=== PATIENT | female | born 1965 | race Caucasian/White ===

== ENCOUNTER → 2016-08-14 | Day surgery (SDC) | payer OTHER ==
[~2016-08-14] MED LIST: ACETAMINOPHEN 1000 MG/100 ML VIAL IV ONE; ACETAMINOPHEN/HYDROcodone 325 MG/5 MG TAB ONE; BACITRACIN IM FOR SOLN 50,000 UNIT VIAL ONE; BUPIVACAINE/EPINEPHRINE 0.25% 50 ML VIAL ONE; GENTAMICIN SULFATE 80 MG/2 ML VIAL ONE; LACTATED RINGER'S 1000 ML INJ 1,000 ML ONE; LIDOCAINE 1%/EPINEPHrine 1:100,000 SOLN 20 ML VIAL ONE; MEPERIDINE HCL 50 MG/ML VIAL ONE; MIDAZOLAM HCL 2 MG/2 ML VIAL ONE; MORPHINE SULFATE 4 MG/ML INJ ONE; ONDANSETRON HCL 4 MG/2 ML VIAL IV PUSH ONE; PROPOFOL 200 MG/20 ML AMP IV ONE; SODIUM CHLORIDE 0.9% 20 ML VIAL ONE; Z.0.NO CURRENT MEDS; ceFAZolin INJ 1,000 MG VIAL ONE
--- NOTE | 2016-08-14 09:38 | TN ---
cc: DAX HIGUERA M.D. DATE OF SURGERY 08/14/2016 PREOPERATIVE DIAGNOSIS Deflation of right breast implant. POSTOPERATIVE DIAGNOSIS Deflation of right breast implant. PROCEDURE Bilateral removal of saline implants and placement with cohesive gel, Natrelle Inspira SRX volume 400 cc. Serial number of the right breast implant device [id number] and on the left [id number]. ESTIMATED BLOOD LOSS Minimal. COMPLICATIONS None. PROCEDURE IN DETAIL She was properly consented, marked anesthetized, the skin sterilized with Betadine solution, sterile draping applied and a breast block was applied utilizing 30 cc of 1% lidocaine with epinephrine. Isolation of the nipple-areolar complex was done from the beginning with a Tegaderm. I proceeded to perform through an infra-areolar vertical incision, down to the capsule of the breast implant. This was properly removed without any difficulties. Obviously, the right breast implant was completely deflated whereas the left breast implant was intact. Photograph documentation was obtained and then discarded. I proceeded to perform, after irrigating the pocket with triple antibiotic solution, lateral inferior capsulorrhaphies utilizing 0 silk in multiple [id number] fashion. Superomedial capsulotomies were done where needed in order to accommodate the new breast implant which was properly done by isolating the skin with Tegaderm as well. The wound was closed in multiple 2-0 Monocryl suture layers in the breast parenchyma and dermis. At this point, the patient was sat up. Tailor tacking technique was utilized utilizing surgical nicole. The skin was properly marked, assuring best symmetry possible. The nicole were removed. The skin was de-epithelialized leaving the NAC at 42-mm areolar diameter and at approximately 2.5 to 23 cm from the sternal notch. The wounds were closed in the following fashion: The inverted T with 2-0 Monocryl suture in dermis and subcu and the nipple-areolar complex was brought out and secured utilizing a pinwheel technique utilizing 2-0 PTFE suture, reinforced with 2-0 Quill. Prineo Dermabond was utilized thereafter. Overall the patient tolerated the procedure well and good viability of tissue was noted at the end of the case. The patient was awakened, extubated in the operating room and transferred back to the postanesthesia care unit in stable condition. No complication appreciated. The patient tolerated the procedure fairly well. MD SUSAN Pereyra /9:22 AM /9:28 AM
== END | disposition home or self-care (01) ==
LOC: ESDC 06:16
PROVIDERS: ATTEND Plastic Surgery
DX: Z41.1 Encounter for cosmetic surgery (principal)
CPT/HCPCS: 00402; 19325; 19328; C1789; J0131; J0690; J1580; J2175; J2250; J2270; J2405; J3010; J7120